=== PATIENT | female | born 1985 | race Asian ===

== ENCOUNTER → 2024-10-16 | Outpatient (CLI) | payer OTHER ==
[~2024-10-16] MED LIST: ISOVUE-370 76% 100ML VIAL As Ordered ONE
== END ==
LOC: M RADPRO 11:24
PROVIDERS: ATTEND Student in an Organized Health Care Education/Training Program
DX: N97.9 Female infertility, unspecified (principal); Z84.2 Family history of other diseases of the genitourinary system
CPT/HCPCS: 58340; 74740; Q9967

== ENCOUNTER 2025-05-12 14:11 | Emergency (ER) | payer OTHER ==
[~2025-05-12] VITALS: Ht 157.5 cm; Wt 57.6 kg
[2025-05-12 14:14] VITALS: BP 122/75; TEMP 96.8; O2SAT 96
[2025-05-12] MEDS: ACETAMINOPHEN 500 MG TAB PO ONE (14:48)
[2025-05-12] MEDS ORDERED: CEPH500C PO (15:06)
[2025-05-12] MEDS: CEPHALEXIN 500 MG CAP PO ONE (15:13)
== END 2025-05-12 15:23 | disposition home or self-care (01) ==
LOC: M ED 14:11
DX: S62.630B Displaced fracture of distal phalanx of right index finger, initial encounter for open fracture (principal); W23.0XXA Caught, crushed, jammed, or pinched between moving objects, initial encounter; Y92.009 Unspecified place in unspecified non-institutional (private) residence as the place of occurrence of the external cause; Y93.89 Activity, other specified; Y99.9 Unspecified external cause status; Z79.2 Long term (current) use of antibiotics

== ENCOUNTER → 2025-09-20 | Outpatient (REF) | payer OTHER ==
[~2025-09-20] MED LIST changes: +CEPH500C PO; -ISOVUE-370 76% 100ML VIAL As Ordered ONE
== END ==
LOC: M PLALAB 15:15
PROVIDERS: ATTEND Student in an Organized Health Care Education/Training Program
DX: Z34.80 Encounter for supervision of other normal pregnancy, unspecified trimester (principal); Z53.9 Procedure and treatment not carried out, unspecified reason

== ENCOUNTER → 2025-09-20 | Outpatient (CLI) | payer OTHER ==
[2025-09-20 17:42] LABS: PLATELET COUNT, AUTOMATED 305 10^3/uL (150-450)
[2025-09-20 19:08] LABS: HIV 1&2 SCREEN NEGATIVE (NEGATIVE)
[2025-09-20 19:17] LABS: HEPATITIS C VIRUS ABY INDEX < 0.02 INDEX (<0.8)
[2025-09-20 19:24] LABS: GC DNA AMPLIFICATION NEGATIVE (NEGATIVE)
[2025-09-20 20:45] LABS: Trichomonas vaginalis (AMP) NOT DETECTED (NEGATIVE)
== END ==
LOC: M PLALAB 15:20
PROVIDERS: ATTEND Student in an Organized Health Care Education/Training Program
DX: Z34.80 Encounter for supervision of other normal pregnancy, unspecified trimester (principal)

== ENCOUNTER → 2025-10-21 | Outpatient (CLI) | payer OTHER | LOC: M PLALAB 12:02 | PROVIDERS: ATTEND Obstetrics & Gynecology | DX: O26.899 Other specified pregnancy related conditions, unspecified trimester (principal); R30.0 Dysuria; Z3A.00 Weeks of gestation of pregnancy not specified ==